=== PATIENT | male | born 1960 | race Caucasian/White ===

== ENCOUNTER 2018-10-26 09:13 | Emergency (ER) | payer MEDICARE ==
--- NOTE | 2018-10-26 09:38 | EDM.PDOC ---
ED HPI GENERAL MEDICAL PROBLEM - General Chief Complaint: Upper Extremity Injury/Pain Stated Complaint: RT SHOULDER PAIN Time Seen by Provider: 10/26/18 09:28 - History of Present Illness INITIAL COMMENTS - FREE TEXT/NARRATIVE: HISTORY AND PHYSICAL: History of present illness: Patient's 57-year-old white male presents concerned acute right shoulder injury discovered when he had a near fall and reached to grab himself. He states he's had prior right shoulder injury informed rotator cuff years ago and is benign hydrocodone since for pain. Review of systems: As per history of present illness and below otherwise all systems reviewed and negative. Past medical history: As per history of present illness and as reviewed below otherwise noncontributory. Surgical history: As per history of present illness and as reviewed below otherwise noncontributory. Social history: No reported history of drug or alcohol abuse. Family history: As per history of present illness and as reviewed below otherwise noncontributory. Physical exam: HEENT: Atraumatic, normocephalic, pupils reactive, negative for conjunctival pallor or scleral icterus, mucous membranes moist, throat clear, neck supple, nontender, trachea midline. Lungs: Clear to auscultation, breath sounds equal bilaterally, chest nontender. Heart: S1S2, regular, negative for clicks, rubs, or JVD. Abdomen: Soft, nondistended, nontender. Negative for masses or hepatosplenomegaly. Negative for costovertebral tenderness. Pelvis: Stable nontender. Genitourinary: Deferred. Rectal: Deferred. Extremities: Right shoulder is some mild tenderness to palpation over the dorsal lateral aspect is limited range of motion secondary to pain versus no point tenderness or obvious abnormality. Neurovascular exams unremarkable. Neuro: Awake, alert, oriented. Cranial nerves II through XII unremarkable. Cerebellum unremarkable. Motor and sensory unremarkable throughout. Exam nonfocal. Diagnostics: X-ray right shoulder Therapeutics: Sling Impression: #1 acute right shoulder injury #2 history of chronic right shoulder pain Definitive disposition and diagnosis as appropriate pending reevaluation and review of above. right shoulder Pain Score (Numeric/FACES): 8 - Related Data Allergies Allergy/AdvReac Type Severity Reaction Status Date / Time No Known Allergies Allergy Verified 10/26/18 09:28 Home Meds: Home Meds Acetaminophen/HYDROcodone [[place] 325-5 MG] 1 tab PO Q6H PRN 10/26/18 [History] Aspirin [Kyleigh Advanced] 1 tab PO DAILY 10/26/18 [History] Isosorbide Mononitrate [Imdur] 30 mg PO DAILY 10/26/18 [History] Metoprolol Tartrate 25 mg PO DAILY 10/26/18 [History] amLODIPine Besylate [Amlodipine Besylate] 5 mg PO DAILY 10/26/18 [History] atorvaSTATin Calcium [Lipitor] 1 tab PO DAILY 10/26/18 [History] Past Medical History Cardiovascular History: Reports: Hypertension, [place], Stents - Infectious Disease History Infectious Disease History: Reports: Chicken Pox - Past Surgical History Cardiovascular Surgical History: Reports: None Respiratory Surgical History: Reports: Lung Resection Other Respiratory Surgeries/Procedures: left lung resection 50% Social & Family History - Family History Family Medical History: Noncontributory - Tobacco Use Smoking Status *Q: Never Smoker - Caffeine Use Caffeine Use: Reports: Coffee - Recreational Drug Use Recreational Drug Use: No Review of Systems - Review of Systems Review Of Systems: ROS reveals no pertinent complaints other than HPI. ED EXAM, GENERAL - Physical Exam Exam: See Below (See dictation) Course - Vital Signs Last Recorded V/S: Last Vital Signs Temp 36.9 C 10/26/18 09:27 Pulse 96 10/26/18 09:27 Resp 18 10/26/18 09:27 BP 142/85 H 10/26/18 09:27 Pulse Ox 95 10/26/18 09:27 - Orders/Labs/Meds Orders: Active Orders 24 hr Category Date Time Status Shoulder Comp Rt [CR] Stat Exams 10/26/18 09:17 Ordered Departure - Departure Time of Disposition: 09:37 Disposition: Home, Self-Care 01 Condition: Good Clinical Impression: Shoulder injury, Chronic right shoulder pain - Discharge Information Referrals: PCP,None [Primary Care Provider] - Additional Instructions: The following information is given to patients seen in the emergency department who are being discharged to home. This information is to outline your options for follow-up care. We provide all patients seen in our emergency department with a follow-up referral. The need for follow-up, as well as the timing and circumstances, are variable depending upon the specifics of your emergency department visit. If you don't have a primary care physician on staff, we will provide you with a referral. We always advise you to contact your personal physician following an emergency department visit to inform them of the circumstance of the visit and for follow-up with them and/or the need for any referrals to a consulting specialist. The emergency department will also refer you to a specialist when appropriate. This referral assures that you have the opportunity for followup care with a specialist. All of these measure are taken in an effort to provide you with optimal care, which includes your followup. Under all circumstances we always encourage you to contact your private physician who remains a resource for coordinating your care. When calling for followup care, please make the office aware that this follow-up is from your recent emergency room visit. If for any reason you are refused follow-up, please contact the [facility] emergency department at and asked to speak to the emergency department charge nurse. [facility] [address], [address] [place] [address] [place] as directed follow-up orthopedic clinic above call to schedule appointment return as needed as discussed - My Orders Last 24 Hours: My Active Orders 10/26/18 09:17 Shoulder Comp Rt [CR] Stat - Assessment/Plan Last 24 Hours: My Active Orders 10/26/18 09:17 Shoulder Comp Rt [CR] Stat
--- NOTE | 2018-10-26 10:04 | CR ---
EXAMINATION: Right shoulder HISTORY: Pain COMPARISON: None TECHNIQUE: 3 views FINDINGS/IMPRESSION: There is no acute osseous abnormality, dislocation, or fracture. Moderate subcutaneous cortical cystic changes noted underlying the rotator cuff insertion within the humeral head. Mild acromioclavicular osteoarthritic changes are noted.
[2018-10-26 12:13] VITALS: BP 135/65
== END 2018-10-26 10:33 | disposition home or self-care (01) ==
LOC: MW.ED 09:13
DX: S49.91XA Unspecified injury of right shoulder and upper arm, initial encounter (principal); M25.511 Pain in right shoulder; G89.29 Other chronic pain; I10 Essential (primary) hypertension; I25.2 Old myocardial infarction; Z79.82 Long term (current) use of aspirin; X58.XXXA Exposure to other specified factors, initial encounter
CPT/HCPCS: 73030-26-RT; 73030-RT; 99283

== ENCOUNTER 2018-12-27 09:03 | Inpatient (IN) | payer MEDICAID, MEDICARE ==
[2018-12-27] MEDS ORDERED: Sodium Chloride 0.9% 1,000 ML IV ONE (09:04)
[2018-12-27] MEDS ORDERED: Ondansetron 4 MG/2 ML SDV IVPUSH ONE (09:04)
[2018-12-27] MEDS ORDERED: Ketorolac 30 MG/ML SDV IVPUSH ONE (09:04)
[2018-12-27] MEDS ORDERED: Pantoprazole 40 MG Vial IVPUSH ONE (09:05)
--- NOTE | 2018-12-27 09:07 | EDM.PDOC ---
ED HPI GENERAL MEDICAL PROBLEM - General Stated Complaint: VOMITING AND PAIN IN STOMACH Time Seen by Provider: 12/27/18 09:07 Source of Information: Reports: Patient - History of Present Illness INITIAL COMMENTS - FREE TEXT/NARRATIVE: HISTORY AND PHYSICAL: History of present illness: [Patient with lung cancer on immunotherapy epigastric pain and vomiting for 2 days no fever chills sweats no chest pain shortness breath headache dizziness palpitation no bowel or urine symptoms ] Review of systems: As per history of present illness and below otherwise all systems reviewed and negative. Past medical history: As per history of present illness and as reviewed below otherwise noncontributory. Surgical history: As per history of present illness and as reviewed below otherwise noncontributory. Social history: No reported history of drug or alcohol abuse. Family history: As per history of present illness and as reviewed below otherwise noncontributory. Physical exam: HEENT: Atraumatic, normocephalic, pupils reactive, negative for conjunctival pallor or scleral icterus, mucous membranes moist, throat clear, neck supple, nontender, trachea midline. Lungs: Clear to auscultation, breath sounds equal bilaterally, chest nontender. Heart: S1S2, regular, negative for clicks, rubs, or JVD. Abdomen: Soft, nondistended, nontender. Negative for masses or hepatosplenomegaly. Negative for costovertebral tenderness. Pelvis: Stable nontender. Genitourinary: Deferred. Rectal: Deferred. Extremities: Atraumatic, negative for cords or calf pain. Neurovascular unremarkable. Neuro: Awake, alert, oriented. Cranial nerves II through XII unremarkable. Cerebellum unremarkable. Motor and sensory unremarkable throughout. Exam nonfocal. Diagnostics: [CBC CMP UA troponin lipase EKG ] CT abdomen pelvis with contrast Therapeutics: [Normal saline Zofran 8 mg IV Toradol 30 mg IV Proton X 80 mg IV Gram Rocephin iv ] Impression: [ acute pancreatitis UTI Chronic history of baseline ] Definitive disposition and diagnosis as appropriate pending reevaluation and review of above. epigastric pain Pain Score (Numeric/FACES): 9 - Related Data Allergies Allergy/AdvReac Type Severity Reaction Status Date / Time No Known Allergies Allergy Verified 10/26/18 09:28 Home Meds: Home Meds Acetaminophen/HYDROcodone [[place] 325-5 MG] 1 tab PO Q6H PRN 10/26/18 [History] Aspirin [Kyleigh Advanced] 1 tab PO DAILY 10/26/18 [History] Isosorbide Mononitrate [Imdur] 30 mg PO DAILY 10/26/18 [History] Metoprolol Tartrate 25 mg PO DAILY 10/26/18 [History] amLODIPine Besylate [Amlodipine Besylate] 5 mg PO DAILY 10/26/18 [History] atorvaSTATin Calcium [Lipitor] 40 mg PO DAILY 10/26/18 [History] Past Medical History Cardiovascular History: Reports: Hypertension, [place], Stents - Infectious Disease History Infectious Disease History: Reports: Chicken Pox - Past Surgical History Cardiovascular Surgical History: Reports: None Respiratory Surgical History: Reports: Lung Resection Other Respiratory Surgeries/Procedures: left lung resection 50% Social & Family History - Family History Family Medical History: Noncontributory - Caffeine Use Caffeine Use: Reports: Coffee ED ROS GENERAL - Review of Systems Review Of Systems: See Below ED EXAM, GENERAL - Physical Exam Exam: See Below Course - Vital Signs Last Recorded V/S: Last Vital Signs Temp 98.0 F 12/27/18 11:22 Pulse 73 12/27/18 11:22 Resp 18 12/27/18 11:22 BP 134/74 12/27/18 11:22 Pulse Ox 93 L 12/27/18 11:22 - Orders/Labs/Meds Orders: Active Orders 24 hr Category Date Time Status EKG Documentation Completion [RC] STAT Care 12/27/18 09:05 Active CULTURE BLOOD [BC] Stat Lab 12/27/18 10:20 Received CULTURE BLOOD [BC] Stat Lab 12/27/18 10:31 Received CULTURE URINE [RM] Stat Lab 12/27/18 09:27 Received Sodium Chloride 0.9% [Normal Saline] 1,000 ml Med 12/27/18 11:00 Active IV STAT Blood Culture x2 Reflex Set [OM.PC] Stat Oth 12/27/18 10:16 Ordered Medication Orders Sodium Chloride (Normal Saline) 1,000 mls @ 150 mls/hr IV STAT YOVANI Last Admin: 12/27/18 11:17 Dose: 150 mls/hr Labs: Laboratory Tests 12/27/18 12/27/18 12/27/18 Range/Units 09:27 09:28 09:28 WBC 9.46 (4.0-11.0) K/uL RBC 5.48 (4.50-5.90) M/uL Hgb 14.9 (13.0-17.0) g/dL Hct 44.9 (38.0-50.0) % MCV 81.9 (80.0-98.0) fL MCH 27.2 (27.0-32.0) pg MCHC 33.2 (31.0-37.0) g/dL RDW Std Deviation 41.2 (28.0-62.0) fl RDW Coeff of Jeff 14 (11.0-15.0) % Plt Count 341 (150-400) K/uL MPV 9.90 (7.40-12.00) fL Neut % (Auto) 76.0 (48.0-80.0) % Lymph % (Auto) 13.5 L (16.0-40.0) % Lander % (Auto) 7.9 (0.0-15.0) % Eos % (Auto) 2.5 (0.0-7.0) % Baso % (Auto) 0.1 (0.0-1.5) % Neut # (Auto) 7.2 H (1.4-5.7) K/uL Lymph # (Auto) 1.3 (0.6-2.4) K/uL Lander # (Auto) 0.8 (0.0-0.8) K/uL Eos # (Auto) 0.2 (0.0-0.7) K/uL Baso # (Auto) 0.0 (0.0-0.1) K/uL Nucleated RBC % 0.0 /100WBC Nucleated RBCs # 0 K/uL Sodium 141 (136-148) mmol/L Potassium 3.9 (3.5-5.1) mmol/L Chloride 103 (98-107) mmol/L Carbon Dioxide 25.3 (21.0-32.0) mmol/L BUN 13 (7.0-18.0) mg/dL Creatinine 1.1 (0.8-1.3) mg/dL Est Cr Clr Drug Dosing 55.15 mL/min Estimated GFR (MDRD) > 60.0 ml/min Glucose 103 (74-106) mg/dL Calcium 9.8 (8.5-10.1) mg/dL Total Bilirubin 0.6 (0.2-1.0) mg/dL AST 14 L (15-37) IU/L ALT 23 (14-63) IU/L Alkaline Phosphatase 90 (46-116) U/L Troponin I < 0.050 (0.000-0.056) ng/mL Total Protein 8.3 H (6.4-8.2) g/dL Albumin 3.5 (3.4-5.0) g/dL Globulin 4.8 H (2.6-4.0) g/dL Albumin/Globulin Ratio 0.7 L (0.9-1.6) Lipase 1917 H (73-393) U/L Urine Color YELLOW Urine Appearance SLT CLOUDY Urine pH 5.5 (5.0-8.0) Ur Specific [place] >= 1.030 (1.001-1.035) Urine Protein 100 H (NEGATIVE) mg/dL Urine Glucose (UA) NEGATIVE (NEGATIVE) mg/dL Urine Ketones 40 H (NEGATIVE) mg/dL Urine Occult Blood LARGE H (NEGATIVE) Urine Nitrite NEGATIVE (NEGATIVE) Urine Bilirubin MODERATE H (NEGATIVE) Urine Urobilinogen 0.2 (<2.0) EU/dL Ur Leukocyte Esterase TRACE H (NEGATIVE) Urine RBC 0-2 (0-2/HPF) Urine WBC 8-10 (0-5/HPF) Ur Epithelial Cells FEW (NONE-FEW) Amorphous Sediment LIGHT (NEGATIVE) Urine Bacteria FEW (NEGATIVE) Urine Mucus MODERATE (NONE-MOD) Ethyl Alcohol mg/dL 12/27/18 Range/Units 09:28 WBC (4.0-11.0) K/uL RBC (4.50-5.90) M/uL Hgb (13.0-17.0) g/dL Hct (38.0-50.0) % MCV (80.0-98.0) fL MCH (27.0-32.0) pg MCHC (31.0-37.0) g/dL RDW Std Deviation (28.0-62.0) fl RDW Coeff of Jeff (11.0-15.0) % Plt Count (150-400) K/uL MPV (7.40-12.00) fL Neut % (Auto) (48.0-80.0) % Lymph % (Auto) (16.0-40.0) % Lander % (Auto) (0.0-15.0) % Eos % (Auto) (0.0-7.0) % Baso % (Auto) (0.0-1.5) % Neut # (Auto) (1.4-5.7) K/uL Lymph # (Auto) (0.6-2.4) K/uL Lander # (Auto) (0.0-0.8) K/uL Eos # (Auto) (0.0-0.7) K/uL Baso # (Auto) (0.0-0.1) K/uL Nucleated RBC % /100WBC Nucleated RBCs # K/uL Sodium (136-148) mmol/L Potassium (3.5-5.1) mmol/L Chloride (98-107) mmol/L Carbon Dioxide (21.0-32.0) mmol/L BUN (7.0-18.0) mg/dL Creatinine (0.8-1.3) mg/dL Est Cr Clr Drug Dosing mL/min Estimated GFR (MDRD) ml/min Glucose (74-106) mg/dL Calcium (8.5-10.1) mg/dL Total Bilirubin (0.2-1.0) mg/dL AST (15-37) IU/L ALT (14-63) IU/L Alkaline Phosphatase (46-116) U/L Troponin I (0.000-0.056) ng/mL Total Protein (6.4-8.2) g/dL Albumin (3.4-5.0) g/dL Globulin (2.6-4.0) g/dL Albumin/Globulin Ratio (0.9-1.6) Lipase (73-393) U/L Urine Color Urine Appearance Urine pH (5.0-8.0) Ur Specific [place] (1.001-1.035) Urine Protein (NEGATIVE) mg/dL Urine Glucose (UA) (NEGATIVE) mg/dL Urine Ketones (NEGATIVE) mg/dL Urine Occult Blood (NEGATIVE) Urine Nitrite (NEGATIVE) Urine Bilirubin (NEGATIVE) Urine Urobilinogen (<2.0) EU/dL Ur Leukocyte Esterase (NEGATIVE) Urine RBC (0-2/HPF) Urine WBC (0-5/HPF) Ur Epithelial Cells (NONE-FEW) Amorphous Sediment (NEGATIVE) Urine Bacteria (NEGATIVE) Urine Mucus (NONE-MOD) Ethyl Alcohol <3 mg/dL Meds: Medications Generic Name Dose Route Start Last Admin Trade Name Freq PRN Reason Stop Dose Admin Sodium Chloride 1,000 mls @ 150 mls/hr 12/27/18 11:00 12/27/18 11:17 Normal Saline IV 150 mls/hr STAT YOVANI Administration Discontinued Medications Generic Name Dose Route Start Last Admin Trade Name Freq PRN Reason Stop Dose Admin Sodium Chloride 1,000 mls @ 999 mls/hr 12/27/18 09:04 12/27/18 09:32 Normal Saline IV 12/27/18 10:04 999 mls/hr STAT ONE Administration Sodium Chloride Confirm 12/27/18 09:22 12/27/18 09:34 Normal Saline Administered 12/27/18 09:23 20 mls/hr Dose Administration 20 mls @ as directed .ROUTE .STK-MED ONE Ceftriaxone Sodium/Dextrose 1 50 mls @ 100 mls/hr 12/27/18 10:57 12/27/18 11: 18 gm/ Premix IV 12/27/18 11:26 100 mls/hr ONETIME ONE Administration Iopamidol 100 ml 12/27/18 10:56 12/27/18 10:56 Isovue-370 (76%) IVPUSH 12/27/18 10:57 100 ml ONETIME ONE Administration Ketorolac Tromethamine 30 mg 12/27/18 09:04 12/27/18 09:33 Toradol IVPUSH 12/27/18 09:05 30 mg ONETIME ONE Administration Ondansetron HCl 8 mg 12/27/18 09:04 12/27/18 09:33 Zofran IVPUSH 12/27/18 09:05 8 mg ONETIME ONE Administration Pantoprazole Sodium 80 mg 12/27/18 09:05 12/27/18 09:33 Protonix Iv IVPUSH 12/27/18 09:06 80 mg .BOLUS ONE Administration Departure - Departure Time of Disposition: 12:13 Disposition: Admitted As Inpatient 64 Condition: Fair Clinical Impression: Pancreatitis - Discharge Information Referrals: PCP,Unknown [Primary Care Provider] - - My Orders Last 24 Hours: My Active Orders 12/27/18 09:05 EKG Documentation Completion [RC] STAT 12/27/18 09:27 CULTURE URINE [RM] Stat 12/27/18 10:16 Blood Culture x2 Reflex Set [OM.PC] Stat 12/27/18 10:20 CULTURE BLOOD [BC] Stat 12/27/18 10:31 CULTURE BLOOD [BC] Stat 12/27/18 11:00 Sodium Chloride 0.9% [Normal Saline] 1,000 ml IV STAT - Assessment/Plan Last 24 Hours: My Active Orders 12/27/18 09:05 EKG Documentation Completion [RC] STAT 12/27/18 09:27 CULTURE URINE [RM] Stat 12/27/18 10:16 Blood Culture x2 Reflex Set [OM.PC] Stat 12/27/18 10:20 CULTURE BLOOD [BC] Stat 12/27/18 10:31 CULTURE BLOOD [BC] Stat 12/27/18 11:00 Sodium Chloride 0.9% [Normal Saline] 1,000 ml IV STAT
[2018-12-27] MEDS ORDERED: Sodium Chloride 0.9% 20 ML ONE (09:22)
[2018-12-27 09:56] LABS: CHLORIDE,CL 103 mmol/L (98-107); SODIUM,NA 141 mmol/L (136-148)
[2018-12-27] MEDS ORDERED: Iopamidol 755 Mg/ML 100 ML Bottle IVPUSH ONE (10:56)
[2018-12-27] MEDS ORDERED: cefTRIAXone 1 GM in Premix Bag 1 BAG IV ONE (10:57)
[2018-12-27] MEDS ORDERED: Sodium Chloride 0.9% 1,000 ML IV SCH (11:00)
--- NOTE | 2018-12-27 11:25 | CR ---
INDICATION: Dyspnea, chest pain. TECHNIQUE: Chest 1 view. COMPARISON: 10/08/2016. FINDINGS: The radiographic findings of the chest are stable. There is persistent pleural thickening re-identified in the left lung apex with volume loss and likely postoperative changes (? Left upper lobectomy). Elevation of the left hilum is reidentified with a Coronary artery wall stent again seen. There is hyperinflation of the right lung. With no acute appearing infiltrates seen. IMPRESSION: Stable radiographic findings without acute cardiopulmonary disease evident. Dictated by Jonny Cedeño MD @ Dec 27 2018 11:18AM Signed by Dr. Jonny Cedeño @ Dec 27 2018 11:23AM
--- NOTE | 2018-12-27 11:40 | CT ---
INDICATION: Nausea and vomiting. History of lung cancer. TECHNIQUE: CT abdomen and pelvis acquired with 100 cc Isovue 370 IV contrast. COMPARISON: November 11, 2018. FINDINGS: Lower chest: Stable small anterior pericardial effusion or pericardial thickening. Liver: Unremarkable. Normal in size and attenuation. No masses. Gallbladder and bile ducts: Unremarkable. No stones or inflammation. No biliary dilatation. Pancreas: Unremarkable. No mass or inflammation. Spleen: Unremarkable. Normal in size. No masses. Adrenal glands: Unremarkable. No nodules. Kidneys: Unremarkable. No masses, stones, or hydronephrosis. GI tract: Unremarkable. Normal in caliber. No sign of mass or inflammation. Normal appendix. Vasculature: Unremarkable. Lymph nodes: No lymphadenopathy. Omentum/Peritoneum/Abdominal Wall: Unremarkable. No sign of mass or infiltration. No free air or significant free fluid. Pelvis: Stable minimal prostate gland hypertrophy. Otherwise unremarkable. Bones: Unremarkable for age. IMPRESSION: No acute or specific finding to explain nausea and vomiting and no significant change from the prior exam. Specifically the GI tract is unremarkable. Please note that all CT scans at this facility use dose modulation, iterative reconstruction, and/or weight-based dosing when appropriate to reduce radiation dose to as low as reasonably achievable. Dictated by Evaristo Alvarado MD @ Dec 27 2018 11:31AM Signed by Dr. Evaristo Alvarado @ Dec 27 2018 11:39AM
--- NOTE | 2018-12-27 15:36 | PCM.HP ---
H&P History of Present Illness - General Date of Service: 12/27/18 Admit Problem/Dx: Admission Diagnosis/Problem Admission Diagnosis/Problem Pancreatitis Source of Information: Patient History Limitations: Reports: No Limitations - History of Present Illness Initial Comments - Free Text/Narative: The patient is a 58-year-old gentleman who presented to the emergency room with a complaint of periumbilical, epigastric abdominal pain and nausea and vomiting. The patient's pain does not radiate. In the emergency department he had elevation of his lipase. The patient has been in the area visiting with family for the past several months. The patient has a history of lung cancer and has been undergoing chemotherapy and immunotherapy. Last use of chemotherapy was 7 months ago. He also has been on Keytruda for his cancer. The patient has denied any alcohol use. Onset of Symptoms: Reports: Sudden Duration of Symptoms: Reports: Hour(s):, Getting Worse Location: Reports: Abdomen Quality: Reports: Stabbing, Throbbing Severity: Moderate Improves with: Reports: Medication Worsens with: Reports: Eating Associated Symptoms: Reports: No Other Symptoms epigastric pain Pain Score (Numeric/FACES): 5 - Related Data Allergies/Adverse Reactions: Allergies Allergy/AdvReac Type Severity Reaction Status Date / Time No Known Allergies Allergy Verified 10/26/18 09:28 Home Medications: Home Meds Acetaminophen/HYDROcodone [[place] 325-5 MG] 1 tab PO Q6H PRN 10/26/18 [History] Aspirin [[place] Advanced] 1 tab PO DAILY 10/26/18 [History] Isosorbide Mononitrate [Imdur] 30 mg PO DAILY 10/26/18 [History] Metoprolol Tartrate 25 mg PO DAILY 10/26/18 [History] amLODIPine Besylate [Amlodipine Besylate] 5 mg PO DAILY 10/26/18 [History] atorvaSTATin Calcium [Lipitor] 40 mg PO DAILY 10/26/18 [History] Past Medical History HEENT History: Reports: Hard of Hearing Cardiovascular History: Reports: Hypertension, [place], Stents Other Cardiovascular History: 3-4 years Respiratory History: Reports: None Gastrointestinal History: Reports: Pancreatitis Other Gastrointestinal History: some symtoms while doing cancer treatments Genitourinary History: Reports: None Musculoskeletal History: Reports: Arthritis Neurological History: Reports: None Psychiatric History: Reports: None Endocrine/Metabolic History: Reports: None Hematologic History: Reports: None Immunologic History: Reports: None Oncologic (Cancer) History: Reports: Lung Dermatologic History: Reports: None - Infectious Disease History Infectious Disease History: Reports: Chicken Pox - Past Surgical History Cardiovascular Surgical History: Reports: None Respiratory Surgical History: Reports: Lung Resection Other Respiratory Surgeries/Procedures: left lung resection 50% Oncologic Surgical History: Reports: Lobectomy, Lumpectomy Other Oncologic Surgeries/Procedures: 50% left lung gone Social & Family History - Family History Family Medical History: Noncontributory - Tobacco Use Smoking Status *Q: Former Smoker Years of Tobacco use: 38 Used Tobacco, but Quit: Yes Month/Year Tobacco Last Used: 8 years ago - Caffeine Use Caffeine Use: Reports: Coffee - Recreational Drug Use Recreational Drug Use: No Recreational Drug Type: Reports: Marijuana/Hashish Recreational Drug Use Frequency: Weekly - Living Situation & Occupation Living situation: Reports: Single, with Family Occupation: Employed H&P Review of Systems - Review of Systems: Review Of Systems: See Below General: Reports: Weakness HEENT: Reports: No Symptoms Pulmonary: Reports: No Symptoms Cardiovascular: Reports: No Symptoms Gastrointestinal: Reports: Abdominal Pain, Nausea, Vomiting Genitourinary: Reports: No Symptoms Musculoskeletal: Reports: No Symptoms Skin: Reports: No Symptoms Psychiatric: Reports: No Symptoms Neurological: Reports: No Symptoms Hematologic/Lymphatic: Reports: No Symptoms Immunologic: Reports: No Symptoms Exam - Exam Exam: See Below - Vital Signs Vital Signs: Last Vital Signs Temp 36.7 C 12/27/18 11:22 Pulse 73 12/27/18 11:22 Resp 18 12/27/18 11:22 BP 134/74 12/27/18 11:22 Pulse Ox 93 L 12/27/18 11:22 Weight: 80.921 kg - Exam Quality Assessment: No: Supplemental Oxygen General: Alert, Oriented, Cooperative, Mild Distress HEENT: Conjunctiva Clear, EACs Clear, EOMI, PERRLA. No: Mucosa Moist & [place] ( dry, edentulous) Neck: Supple, Trachea Midline Lungs: Clear to Auscultation, Normal Respiratory Effort Cardiovascular: Regular Rate, Regular Rhythm GI/Abdominal Exam: Normal Bowel Sounds, Soft, No Distention, Tender (Epigastrium ). No: Guarding, Rigid, Rebound (Male) Exam: Deferred Rectal (Males) Exam: Deferred Back Exam: Normal Inspection, Full Range of Motion Extremities: Normal Inspection, No Pedal Edema Skin: Warm, Dry, Intact Neurological: Cranial Nerves Intact, Normal Gait Neuro Extensive - Mental Status: Alert, Oriented x3 Neuro Extensive - Motor, Sensory, Reflexes: CN II-XII Intact Psychiatric: Alert, Normal Affect - Patient Data Lab Results Last 24 hrs: Laboratory Results - last 24 hr 12/27/18 12/27/18 12/27/18 Range/Units 09:27 09:28 09:28 WBC 9.46 (4.0-11.0) K/uL RBC 5.48 (4.50-5.90) M/uL Hgb 14.9 (13.0-17.0) g/dL Hct 44.9 (38.0-50.0) % MCV 81.9 (80.0-98.0) fL MCH 27.2 (27.0-32.0) pg MCHC 33.2 (31.0-37.0) g/dL RDW Std Deviation 41.2 (28.0-62.0) fl RDW Coeff of Jeff 14 (11.0-15.0) % Plt Count 341 (150-400) K/uL MPV 9.90 (7.40-12.00) fL Neut % (Auto) 76.0 (48.0-80.0) % Lymph % (Auto) 13.5 L (16.0-40.0) % [place] % (Auto) 7.9 (0.0-15.0) % Eos % (Auto) 2.5 (0.0-7.0) % Baso % (Auto) 0.1 (0.0-1.5) % Neut # (Auto) 7.2 H (1.4-5.7) K/uL Lymph # (Auto) 1.3 (0.6-2.4) K/uL [place] # (Auto) 0.8 (0.0-0.8) K/uL Eos # (Auto) 0.2 (0.0-0.7) K/uL Baso # (Auto) 0.0 (0.0-0.1) K/uL Nucleated RBC % 0.0 /100WBC Nucleated RBCs # 0 K/uL Sodium 141 (136-148) mmol/L Potassium 3.9 (3.5-5.1) mmol/L Chloride 103 (98-107) mmol/L Carbon Dioxide 25.3 (21.0-32.0) mmol/L BUN 13 (7.0-18.0) mg/dL Creatinine 1.1 (0.8-1.3) mg/dL Est Cr Clr Drug Dosing 55.15 mL/min Estimated GFR (MDRD) > 60.0 ml/min Glucose 103 (74-106) mg/dL Calcium 9.8 (8.5-10.1) mg/dL Total Bilirubin 0.6 (0.2-1.0) mg/dL AST 14 L (15-37) IU/L ALT 23 (14-63) IU/L Alkaline Phosphatase 90 (46-116) U/L Troponin I < 0.050 (0.000-0.056) ng/mL Total Protein 8.3 H (6.4-8.2) g/dL Albumin 3.5 (3.4-5.0) g/dL Globulin 4.8 H (2.6-4.0) g/dL Albumin/Globulin Ratio 0.7 L (0.9-1.6) Lipase 1917 H (73-393) U/L Urine Color YELLOW Urine Appearance SLT CLOUDY Urine pH 5.5 (5.0-8.0) Ur Specific [place] >= 1.030 (1.001-1.035) Urine Protein 100 H (NEGATIVE) mg/dL Urine Glucose (UA) NEGATIVE (NEGATIVE) mg/dL Urine Ketones 40 H (NEGATIVE) mg/dL Urine Occult Blood LARGE H (NEGATIVE) Urine Nitrite NEGATIVE (NEGATIVE) Urine Bilirubin MODERATE H (NEGATIVE) Urine Urobilinogen 0.2 (<2.0) EU/dL Ur Leukocyte Esterase TRACE H (NEGATIVE) Urine RBC 0-2 (0-2/HPF) Urine WBC 8-10 (0-5/HPF) Ur Epithelial Cells FEW (NONE-FEW) Amorphous Sediment LIGHT (NEGATIVE) Urine Bacteria FEW (NEGATIVE) Urine Mucus MODERATE (NONE-MOD) Ethyl Alcohol mg/dL 12/27/18 Range/Units 09:28 WBC (4.0-11.0) K/uL RBC (4.50-5.90) M/uL Hgb (13.0-17.0) g/dL Hct (38.0-50.0) % MCV (80.0-98.0) fL MCH (27.0-32.0) pg MCHC (31.0-37.0) g/dL RDW Std Deviation (28.0-62.0) fl RDW Coeff of Jeff (11.0-15.0) % Plt Count (150-400) K/uL MPV (7.40-12.00) fL Neut % (Auto) (48.0-80.0) % Lymph % (Auto) (16.0-40.0) % [place]ila % (Auto) (0.0-15.0) % Eos % (Auto) (0.0-7.0) % Baso % (Auto) (0.0-1.5) % Neut # (Auto) (1.4-5.7) K/uL Lymph # (Auto) (0.6-2.4) K/uL [place] # (Auto) (0.0-0.8) K/uL Eos # (Auto) (0.0-0.7) K/uL Baso # (Auto) (0.0-0.1) K/uL Nucleated RBC % /100WBC Nucleated RBCs # K/uL Sodium (136-148) mmol/L Potassium (3.5-5.1) mmol/L Chloride (98-107) mmol/L Carbon Dioxide (21.0-32.0) mmol/L BUN (7.0-18.0) mg/dL Creatinine (0.8-1.3) mg/dL Est Cr Clr Drug Dosing mL/min Estimated GFR (MDRD) ml/min Glucose (74-106) mg/dL Calcium (8.5-10.1) mg/dL Total Bilirubin (0.2-1.0) mg/dL AST (15-37) IU/L ALT (14-63) IU/L Alkaline Phosphatase (46-116) U/L Troponin I (0.000-0.056) ng/mL Total Protein (6.4-8.2) g/dL Albumin (3.4-5.0) g/dL Globulin (2.6-4.0) g/dL Albumin/Globulin Ratio (0.9-1.6) Lipase (73-393) U/L Urine Color Urine Appearance Urine pH (5.0-8.0) Ur Specific [place] (1.001-1.035) Urine Protein (NEGATIVE) mg/dL Urine Glucose (UA) (NEGATIVE) mg/dL Urine Ketones (NEGATIVE) mg/dL Urine Occult Blood (NEGATIVE) Urine Nitrite (NEGATIVE) Urine Bilirubin (NEGATIVE) Urine Urobilinogen (<2.0) EU/dL Ur Leukocyte Esterase (NEGATIVE) Urine RBC (0-2/HPF) Urine WBC (0-5/HPF) Ur Epithelial Cells (NONE-FEW) Amorphous Sediment (NEGATIVE) Urine Bacteria (NEGATIVE) Urine Mucus (NONE-MOD) Ethyl Alcohol <3 mg/dL Result Diagrams: 12/27/18 09:28 12/27/18 09:28 - Problem List (1) Pancreatitis SNOMED Code(s): 80437731 ICD Code: K85.90 - ACUTE PANCREATITIS WITHOUT NECROSIS OR INFECTION, UNSP Status: Acute Priority: High Current Visit: Yes Qualifiers: Chronicity: acute Pancreatitis type: idiopathic Acute pancreatitis complication: no infection or necrosis Qualified Code(s): K85.00 - Idiopathic acute pancreatitis without necrosis or infection (2) Nausea & vomiting SNOMED Code(s): 82586766 ICD Code: R11.2 - NAUSEA WITH VOMITING, UNSPECIFIED Status: Acute Priority: High Current Visit: Yes Qualifiers: Vomiting type: bilious vomiting Qualified Code(s): R11.14 - Bilious vomiting (3) Lung cancer SNOMED Code(s): 511355541 ICD Code: C34.90 - MALIGNANT NEOPLASM OF UNSP PART OF UNSP BRONCHUS OR LUNG Status: Chronic Priority: Medium Current Visit: Yes Qualifiers: Laterality: unspecified laterality Lung location: unspecified part of lung Qualified Code(s): C34.90 - Malignant neoplasm of unspecified part of unspecified bronchus or lung (4) Epigastric abdominal pain SNOMED Code(s): 96463024 ICD Code: R10.13 - EPIGASTRIC PAIN Status: Acute Priority: High Current Visit: Yes Problem List Initiated/Reviewed/Updated: Yes Orders Last 24hrs: Active Orders 24 hr Category Date Time Status Admission Status [Patient Status] [ADT] Stat ADT 12/27/18 12:14 Active EKG Documentation Completion [RC] STAT Care 12/27/18 09:05 Active CULTURE BLOOD [BC] Stat Lab 12/27/18 10:20 Received CULTURE BLOOD [BC] Stat Lab 12/27/18 10:31 Received CULTURE URINE [RM] Stat Lab 12/27/18 09:27 Received Sodium Chloride 0.9% [Normal Saline] 1,000 ml Med 12/27/18 11:00 Active IV STAT Blood Culture x2 Reflex Set [OM.PC] Stat Oth 12/27/18 10:16 Ordered Medication Orders Sodium Chloride (Normal Saline) 1,000 mls @ 150 mls/hr IV STAT YOVANI Last Admin: 12/27/18 11:17 Dose: 150 mls/hr Assessment/Plan Comment:: The patient is a 58-year-old gentleman who has been admitted secondary to pancreatitis. Literature review indicates that mild transient pancreatitis can result from chemotherapy and there is no indication of Keytruda associated pancreatitis. The patient does have minimal elevation of his lipase. He'll be kept nothing by mouth, fluid resuscitated with normal saline at 125 mL per hour. The patient's pain also be controlled with use of IV narcotics. The patient also be kept on Lovenox for DVT prophylaxis. Lipid panel has been ordered. The patient also has been encouraged to ambulate. It the patient has improved to his baseline he would be appropriate for discharge in 1-2 days. The patient plans to follow-up with his oncologist in [place] later this week.
[2018-12-27] MEDS ORDERED: Docusate Sodium 100 MG Cap PO PRN (15:41)
[2018-12-27] MEDS ORDERED: oxyCODONE 5 MG Tab PO PRN (15:41)
[2018-12-27] MEDS ORDERED: Temazepam 15 MG Cap PO PRN (15:41)
[2018-12-27] MEDS ORDERED: Ondansetron 4 MG/2 ML SDV IVPUSH SCH (15:45)
[2018-12-27] MEDS ORDERED: Enoxaparin 40 MG/0.4 ML Syringe SUBCUT SCH (15:45)
[2018-12-27] MEDS: Sodium Chloride 0.9% 1,000 ML IV SCH (16:19)
[2018-12-27] MEDS: Ondansetron 4 MG/2 ML SDV IVPUSH PRN (16:30)
[2018-12-27] MEDS: Morphine 2 MG/ML Syringe IVPUSH PRN ×2 (17:39→21:13)
[2018-12-28] MEDS: Sodium Chloride 0.9% 1,000 ML IV SCH (02:13)
[2018-12-28 06:42] LABS: CHLORIDE,CL 107 mmol/L (98-107); SODIUM,NA 141 mmol/L (136-148)
[2018-12-28] MEDS ORDERED: Isosorbide Mononitrate 30 MG Tab.ER PO SCH (09:00)
[2018-12-28] MEDS ORDERED: Metoprolol Tartrate 25 MG Tab PO SCH (09:00)
[2018-12-28] MEDS ORDERED: amLODIPine 5 MG Tab PO SCH (09:00)
[2018-12-28] MEDS: Ondansetron 4 MG/2 ML SDV IVPUSH PRN (11:11)
[2018-12-28 12:28] VITALS: BP 123/70
--- NOTE | 2018-12-28 13:15 | US ---
EXAMINATION: Right upper quadrant ultrasound HISTORY: Pancreatitis COMPARISON: CT dated 12/27/2018 TECHNIQUE: Grayscale and color Doppler imaging obtained. FINDINGS: The pancreas is not well characterized. The liver is mildly increased in generalized echotexture without a focal hepatic mass. The gallbladder wall thickness is normal. No pericholecystic fluid or shadowing gallstones. The common bile duct measures 3 mm. Right kidney measures at least 11.7 cm [id number] without evidence of hydronephrosis. Negative sonographic Martínez sign. IMPRESSION: 1. Mild fatty infiltration of the liver.
--- NOTE | 2018-12-28 13:35 | PCM.DCSUM1 ---
<Araseli Foy - Last Filed: 12/28/18 13:21> Discharge Summary - Hospital Course Free Text/Narrative:: Admission Date: 12/27/18 Discharge Date: 12/28/18 Admission Diagnosis: 1. Abdominal pain with nausea/vomiting secondary to acute pancreatitis 2. Hx of lung cancer Discharge Diagnosis: 1. Abdominal pain with nausea/vomiting secondary to acute pancreatitis 2. Hx of lung cancer, CAD, HTN Procedures: None Consults: None Hospital Course: The patient is a 58 year old male with past medical history of lung cancer (last chemo 7 months ago), CAD, and HTN who presented to the ER with abdominal pain, nausea, and vomiting. Workup showed elevated lipase but no white count or electrolyte abnormalities. CXR showed no acute cardiopulmonary process but did reveal chronic changes due to lung cancer treatment. CT of the ab/pelvis did not show any acute processes. He was admitted to the medical surgical floor for observation. He was treated for pancreatitis with pain control, IVF, and his diet was advanced as tolerated from NPO. Additional workup included a lipid panel without significant findings and US of the RUQ which showed mild fatty infiltrate without evidence of masses. By day of discharge, his abdominal pain, nausea, and vomiting had resolved and he was tolerating an oral diet. He was continued on his home medications for his chronic conditions. He stated he wanted to be discharged as he was moving back to [place] in 2 days and needed to get things arranged at his house. He plans to follow up with his PCP and oncologist when he returns home to [place]. Disposition: Home Discharge Condition: vitals stable, tolerating oral diet, ambulating without difficulty, symptoms resolved Discharge Instructions: diet as tolerated, activity as tolerated, take medications as prescribed. Symptoms to report to physician include fever/chills , chest pain, shortness of breath, abdominal pain, nausea/vomiting, erythema, drainage/discharge, not improving as expected. Discharge Medications: Acetaminophen/HYDROcodone [[place] 325-5 MG] 1 tab PO Q6H PRN Aspirin [Kyleigh Advanced] 1 tab PO DAILY Isosorbide Mononitrate [Imdur] 30 mg PO DAILY Metoprolol Tartrate 25 mg PO DAILY amLODIPine Besylate [Amlodipine Besylate] 5 mg PO DAILY atorvaSTATin Calcium [Lipitor] 40 mg PO DAILY Follow-up: Plans to follow up with his PCP and oncologist when he gets back to [place] at the end of the week. Diagnosis: Stroke: No - Discharge Data Discharge Date: 12/28/18 Discharge Disposition: Home, Self-Care 01 Condition: Stable - Patient Instructions Diet, Other: Advance diet as tolerated Activity: As Tolerated Driving: May Drive Today Showering/Bathing: May Shower Notify Provider of: Fever, Increased Pain, Swelling and Redness, Drainage, Nausea and/or Vomiting Other/Special Instructions: Additional symptoms include chest pain, shortness of breath, or abdominal pain. - Discharge Plan *PRESCRIPTION DRUG MONITORING PROGRAM REVIEWED*: No *COPY OF PRESCRIPTION DRUG MONITORING REPORT IN PATIENT AMBREEN: No Home Medications: Home Meds Acetaminophen/HYDROcodone [[place] 325-5 MG] 1 tab PO Q6H PRN 10/26/18 [History] Aspirin [Kyleigh Advanced] 1 tab PO DAILY 10/26/18 [History] Isosorbide Mononitrate [Imdur] 30 mg PO DAILY 10/26/18 [History] Metoprolol Tartrate 25 mg PO DAILY 10/26/18 [History] amLODIPine Besylate [Amlodipine Besylate] 5 mg PO DAILY 10/26/18 [History] atorvaSTATin Calcium [Lipitor] 40 mg PO DAILY 10/26/18 [History] Patient Handouts: Acute Pancreatitis, [id number], [place] Diet Referrals: [facility] [Outside] Richi Amanda MD [Physician] - 01/12/19 1:00 pm - Discharge Summary/Plan Comment DC Time >30 min.: No - Patient Data Vitals - Most Recent: Last Vital Signs Temp 98.9 F 12/28/18 12:00 Pulse 68 12/28/18 12:00 Resp 18 12/28/18 12:00 BP 123/70 12/28/18 12:00 Pulse Ox 94 L 12/28/18 12:00 Weight - Most Recent: 80.921 kg I&O - Last 24 hours: Intake & Output 12/27/18 12/28/18 12/28/18 22:59 06:59 14:59 Intake Total 1000 1765 Output Total 430 Balance 1000 1335 Lab Results - Last 24 hrs: Laboratory Results - last 24 hr 12/27/18 12/28/18 12/28/18 Range/Units 09:28 06:03 06:03 WBC 7.46 (4.0-11.0) K/uL RBC 4.58 (4.50-5.90) M/uL Hgb 12.2 L (13.0-17.0) g/dL Hct 38.6 (38.0-50.0) % MCV 84.3 (80.0-98.0) fL MCH 26.6 L (27.0-32.0) pg MCHC 31.6 (31.0-37.0) g/dL RDW Std Deviation 42.2 (28.0-62.0) fl RDW Coeff of Jeff 14 (11.0-15.0) % Plt Count 262 (150-400) K/uL MPV 9.90 (7.40-12.00) fL Neut % (Auto) 73.8 (48.0-80.0) % Lymph % (Auto) 13.0 L (16.0-40.0) % [place] % (Auto) 8.2 (0.0-15.0) % Eos % (Auto) 4.7 (0.0-7.0) % Baso % (Auto) 0.3 (0.0-1.5) % Neut # (Auto) 5.5 (1.4-5.7) K/uL Lymph # (Auto) 1.0 (0.6-2.4) K/uL [place] # (Auto) 0.6 (0.0-0.8) K/uL Eos # (Auto) 0.4 (0.0-0.7) K/uL Baso # (Auto) 0.0 (0.0-0.1) K/uL Nucleated RBC % 0.0 /100WBC Nucleated RBCs # 0 K/uL Sodium 141 (136-148) mmol/L Potassium 4.4 (3.5-5.1) mmol/L Chloride 107 (98-107) mmol/L Carbon Dioxide 23.5 (21.0-32.0) mmol/L BUN 10 (7.0-18.0) mg/dL Creatinine 0.9 (0.8-1.3) mg/dL Est Cr Clr Drug Dosing 67.41 mL/min Estimated GFR (MDRD) > 60.0 ml/min Glucose 67 L (74-106) mg/dL Calcium 8.6 (8.5-10.1) mg/dL Magnesium 1.9 (1.8-2.4) mg/dL Total Bilirubin 0.4 (0.2-1.0) mg/dL AST 14 L (15-37) IU/L ALT 20 (14-63) IU/L Alkaline Phosphatase 69 (46-116) U/L Total Protein 6.6 (6.4-8.2) g/dL Albumin 2.7 L (3.4-5.0) g/dL Globulin 3.9 (2.6-4.0) g/dL Albumin/Globulin Ratio 0.7 L (0.9-1.6) Triglycerides 97 (0-200) mg/dL Cholesterol 152 (50-200) mg/dL LDL Cholesterol, Calc 99 (60-180) mg/dL VLDL Cholesterol 19 (5-55) mg/dL HDL Cholesterol 34 L (40-60) mg/dL Cholesterol/HDL Ratio 4.5 (3.3-6.0) Lipase 1930 H (73-393) U/L RUPALI Results - Last 24 hrs: Microbiology 12/27/18 10:31 Aerobic Blood Culture - Preliminary Blood - Venous - Lab Draw NO GROWTH AFTER 1 DAY Anaerobic Blood Culture - Preliminary NO GROWTH AFTER 1 DAY 12/27/18 10:20 Aerobic Blood Culture - Preliminary Blood - Venous NO GROWTH AFTER 1 DAY Anaerobic Blood Culture - Preliminary NO GROWTH AFTER 1 DAY Med Orders - Current: Current Medications Amlodipine Besylate (Norvasc) 5 mg PO DAILY [facility] Last Admin: 12/28/18 09:28 Dose: 5 mg Docusate Sodium (Colace) 100 mg PO BID PRN PRN Reason: Constipation Enoxaparin Sodium (Lovenox) 40 mg SUBCUT Q24H [facility] Last Admin: 12/27/18 16:18 Dose: 40 mg Sodium Chloride (Normal Saline) 1,000 mls @ 125 mls/hr IV ASDIRECTED [facility] Last Admin: 12/28/18 02:13 Dose: 125 mls/hr Isosorbide Mononitrate (Imdur) 30 mg PO DAILY [facility] Last Admin: 12/28/18 09:31 Dose: 30 mg Metoprolol Tartrate (Lopressor) 25 mg PO DAILY [facility] Last Admin: 12/28/18 09:31 Dose: 25 mg Morphine Sulfate (Morphine) 2 mg IVPUSH Q2H PRN PRN Reason: Pain (severe 7-10) Stop: 12/28/18 15:42 Last Admin: 12/27/18 21:13 Dose: 2 mg Ondansetron HCl (Zofran) 4 mg IVPUSH Q6H PRN PRN Reason: Nausea Last Admin: 12/28/18 11:11 Dose: 4 mg Oxycodone HCl (Oxycodone) 5 mg PO Q4H PRN PRN Reason: Pain (moderate 4-6) Last Admin: 12/27/18 16:34 Dose: 5 mg Temazepam (Restoril) 15 mg PO BEDTIME PRN PRN Reason: Sleep Discontinued Medications Sodium Chloride (Normal Saline) 1,000 mls @ 999 mls/hr IV STAT ONE Stop: 12/27/18 10:04 Last Admin: 12/27/18 09:32 Dose: 999 mls/hr Sodium Chloride (Normal Saline) Confirm Administered Dose 20 mls @ as directed .ROUTE .STK-MED ONE Stop: 12/27/18 09:23 Last Admin: 12/27/18 09:34 Dose: 20 mls/hr Sodium Chloride (Normal Saline) 1,000 mls @ 150 mls/hr IV STAT [facility] Last Admin: 12/27/18 11:17 Dose: 150 mls/hr Ceftriaxone Sodium/Dextrose 1 (gm/ Premix) 50 mls @ 100 mls/hr IV ONETIME ONE Stop: 12/27/18 11:26 Last Admin: 12/27/18 11:18 Dose: 100 mls/hr Iopamidol (Isovue-370 (76%)) 100 ml IVPUSH ONETIME ONE Stop: 12/27/18 10:57 Last Admin: 12/27/18 10:56 Dose: 100 ml Ketorolac Tromethamine (Toradol) 30 mg IVPUSH ONETIME ONE Stop: 12/27/18 09:05 Last Admin: 12/27/18 09:33 Dose: 30 mg Ondansetron HCl (Zofran) 8 mg IVPUSH ONETIME ONE Stop: 12/27/18 09:05 Last Admin: 12/27/18 09:33 Dose: 8 mg Ondansetron HCl (Zofran) 4 mg IVPUSH Q6H [facility] Last Admin: 12/27/18 16:18 Dose: 4 mg Pantoprazole Sodium (Protonix Iv) 80 mg IVPUSH .BOLUS ONE Stop: 12/27/18 09:06 Last Admin: 12/27/18 09:33 Dose: 80 mg <Dat Delacruz - Last Filed: 12/28/18 15:09> Discharge Summary - Hospital Course Free Text/Narrative:: I have seen and examined the patient independently of medical office administrator, Araseli Foy MD. I have discussed the case with her. I have reviewed and agree with the assessment and plan of care for the patient as outlined by her. Please see orders. - Discharge Diagnosis/Problem(s) (1) Pancreatitis SNOMED Code(s): 13663371 ICD Code: K85.90 - ACUTE PANCREATITIS WITHOUT NECROSIS OR INFECTION, UNSP Status: Acute Priority: High Qualifiers: Chronicity: acute Pancreatitis type: idiopathic Acute pancreatitis complication: no infection or necrosis Qualified Code(s): K85.00 - Idiopathic acute pancreatitis without necrosis or infection (2) Nausea & vomiting SNOMED Code(s): 08679063 ICD Code: R11.2 - NAUSEA WITH VOMITING, UNSPECIFIED Status: Acute Priority: High Qualifiers: Vomiting type: bilious vomiting Qualified Code(s): R11.14 - Bilious vomiting (3) Lung cancer SNOMED Code(s): 639845056 ICD Code: C34.90 - MALIGNANT NEOPLASM OF UNSP PART OF UNSP BRONCHUS OR LUNG Status: Chronic Priority: Medium Qualifiers: Laterality: unspecified laterality Lung location: unspecified part of lung Qualified Code(s): C34.90 - Malignant neoplasm of unspecified part of unspecified bronchus or lung (4) Epigastric abdominal pain SNOMED Code(s): 15573747 ICD Code: R10.13 - EPIGASTRIC PAIN Status: Acute Priority: High - Patient Data Vitals - Most Recent: Last Vital Signs Temp 37.2 C 12/28/18 12:00 Pulse 68 12/28/18 12:00 Resp 18 12/28/18 12:00 BP 123/70 12/28/18 12:00 Pulse Ox 94 L 12/28/18 12:00 I&O - Last 24 hours: Intake & Output 12/28/18 12/28/18 12/28/18 06:59 14:59 22:59 Intake Total 1765 Output Total 430 Balance 1335 Lab Results - Last 24 hrs: Laboratory Results - last 24 hr 12/27/18 12/28/18 12/28/18 Range/Units 09:28 06:03 06:03 WBC 7.46 (4.0-11.0) K/uL RBC 4.58 (4.50-5.90) M/uL Hgb 12.2 L (13.0-17.0) g/dL Hct 38.6 (38.0-50.0) % MCV 84.3 (80.0-98.0) fL MCH 26.6 L (27.0-32.0) pg MCHC 31.6 (31.0-37.0) g/dL RDW Std Deviation 42.2 (28.0-62.0) fl RDW Coeff of Jeff 14 (11.0-15.0) % Plt Count 262 (150-400) K/uL MPV 9.90 (7.40-12.00) fL Neut % (Auto) 73.8 (48.0-80.0) % Lymph % (Auto) 13.0 L (16.0-40.0) % [place] % (Auto) 8.2 (0.0-15.0) % Eos % (Auto) 4.7 (0.0-7.0) % Baso % (Auto) 0.3 (0.0-1.5) % Neut # (Auto) 5.5 (1.4-5.7) K/uL Lymph # (Auto) 1.0 (0.6-2.4) K/uL [place] # (Auto) 0.6 (0.0-0.8) K/uL Eos # (Auto) 0.4 (0.0-0.7) K/uL Baso # (Auto) 0.0 (0.0-0.1) K/uL Nucleated RBC % 0.0 /100WBC Nucleated RBCs # 0 K/uL Sodium 141 (136-148) mmol/L Potassium 4.4 (3.5-5.1) mmol/L Chloride 107 (98-107) mmol/L Carbon Dioxide 23.5 (21.0-32.0) mmol/L BUN 10 (7.0-18.0) mg/dL Creatinine 0.9 (0.8-1.3) mg/dL Est Cr Clr Drug Dosing 67.41 mL/min Estimated GFR (MDRD) > 60.0 ml/min Glucose 67 L (74-106) mg/dL Calcium 8.6 (8.5-10.1) mg/dL Magnesium 1.9 (1.8-2.4) mg/dL Total Bilirubin 0.4 (0.2-1.0) mg/dL AST 14 L (15-37) IU/L ALT 20 (14-63) IU/L Alkaline Phosphatase 69 (46-116) U/L Total Protein 6.6 (6.4-8.2) g/dL Albumin 2.7 L (3.4-5.0) g/dL Globulin 3.9 (2.6-4.0) g/dL Albumin/Globulin Ratio 0.7 L (0.9-1.6) Triglycerides 97 (0-200) mg/dL Cholesterol 152 (50-200) mg/dL LDL Cholesterol, Calc 99 (60-180) mg/dL VLDL Cholesterol 19 (5-55) mg/dL HDL Cholesterol 34 L (40-60) mg/dL Cholesterol/HDL Ratio 4.5 (3.3-6.0) Lipase 1930 H (73-393) U/L RUPALI Results - Last 24 hrs: Microbiology 12/27/18 10:31 Aerobic Blood Culture - Preliminary Blood - Venous - Lab Draw NO GROWTH AFTER 1 DAY Anaerobic Blood Culture - Preliminary NO GROWTH AFTER 1 DAY 12/27/18 10:20 Aerobic Blood Culture - Preliminary Blood - Venous NO GROWTH AFTER 1 DAY Anaerobic Blood Culture - Preliminary NO GROWTH AFTER 1 DAY Med Orders - Current: Current Medications Discontinued Medications Amlodipine Besylate (Norvasc) 5 mg PO DAILY [facility] Last Admin: 12/28/18 09:28 Dose: 5 mg Docusate Sodium (Colace) 100 mg PO BID PRN PRN Reason: Constipation Enoxaparin Sodium (Lovenox) 40 mg SUBCUT Q24H [facility] Last Admin: 12/27/18 16:18 Dose: 40 mg Sodium Chloride (Normal Saline) 1,000 mls @ 999 mls/hr IV STAT ONE Stop: 12/27/18 10:04 Last Admin: 12/27/18 09:32 Dose: 999 mls/hr Sodium Chloride (Normal Saline) Confirm Administered Dose 20 mls @ as directed .ROUTE .STK-MED ONE Stop: 12/27/18 09:23 Last Admin: 12/27/18 09:34 Dose: 20 mls/hr Sodium Chloride (Normal Saline) 1,000 mls @ 150 mls/hr IV STAT [facility] Last Admin: 12/27/18 11:17 Dose: 150 mls/hr Ceftriaxone Sodium/Dextrose 1 (gm/ Premix) 50 mls @ 100 mls/hr IV ONETIME ONE Stop: 12/27/18 11:26 Last Admin: 12/27/18 11:18 Dose: 100 mls/hr Sodium Chloride (Normal Saline) 1,000 mls @ 125 mls/hr IV ASDIRECTED [facility] Last Admin: 12/28/18 02:13 Dose: 125 mls/hr Iopamidol (Isovue-370 (76%)) 100 ml IVPUSH ONETIME ONE Stop: 12/27/18 10:57 Last Admin: 12/27/18 10:56 Dose: 100 ml Isosorbide Mononitrate (Imdur) 30 mg PO DAILY [facility] Last Admin: 12/28/18 09:31 Dose: 30 mg Ketorolac Tromethamine (Toradol) 30 mg IVPUSH ONETIME ONE Stop: 12/27/18 09:05 Last Admin: 12/27/18 09:33 Dose: 30 mg Metoprolol Tartrate (Lopressor) 25 mg PO DAILY [facility] Last Admin: 12/28/18 09:31 Dose: 25 mg Morphine Sulfate (Morphine) 2 mg IVPUSH Q2H PRN PRN Reason: Pain (severe 7-10) Stop: 12/28/18 15:42 Last Admin: 12/27/18 21:13 Dose: 2 mg Ondansetron HCl (Zofran) 8 mg IVPUSH ONETIME ONE Stop: 12/27/18 09:05 Last Admin: 12/27/18 09:33 Dose: 8 mg Ondansetron HCl (Zofran) 4 mg IVPUSH Q6H [facility] Last Admin: 12/27/18 16:18 Dose: 4 mg Ondansetron HCl (Zofran) 4 mg IVPUSH Q6H PRN PRN Reason: Nausea Last Admin: 12/28/18 11:11 Dose: 4 mg Oxycodone HCl (Oxycodone) 5 mg PO Q4H PRN PRN Reason: Pain (moderate 4-6) Last Admin: 12/27/18 16:34 Dose: 5 mg Pantoprazole Sodium (Protonix Iv) 80 mg IVPUSH .BOLUS ONE Stop: 12/27/18 09:06 Last Admin: 12/27/18 09:33 Dose: 80 mg Temazepam (Restoril) 15 mg PO BEDTIME PRN PRN Reason: Sleep
== END 2018-12-28 14:15 | disposition home or self-care (01) | DRG 439 ==
LOC: MW.ED 09:03 → MW.MS 12:32
PROVIDERS: ADMIT Internal Medicine; ATTEND Internal Medicine
DX: K85.00 Idiopathic acute pancreatitis without necrosis or infection (principal); C34.90 Malignant neoplasm of unspecified part of unspecified bronchus or lung; I25.10 Atherosclerotic heart disease of native coronary artery without angina pectoris; I10 Essential (primary) hypertension; H54.7 Unspecified visual loss; M19.90 Unspecified osteoarthritis, unspecified site; I25.2 Old myocardial infarction; Z95.5 Presence of coronary angioplasty implant and graft; Z92.21 Personal history of antineoplastic chemotherapy; Z79.899 Other long term (current) drug therapy; Z79.82 Long term (current) use of aspirin; Z90.2 Acquired absence of lung [part of]; Z87.891 Personal history of nicotine dependence
CPT/HCPCS: 36415; 71045; 71045-26; 74177; 74177-26; 76705; 76705-26; 80053; 80061; 81001; 83690; 83735; 84484; 85025; 87040; 87086; 93005; 96361; 96365; 96375; 99284; 99285-25; A9270-GY; C9113; G0480; J0696; J1650; J1885; J2270; J2405; J7040; Q9967